=== PATIENT | female | born 1965 | race Caucasian/White ===

== ENCOUNTER 2018-04-19 12:13 | Emergency (ER) | payer MEDICAID ==
[~2018-04-19] VITALS: Ht 154.9 cm; Wt 63.0 kg
[2018-04-19] MEDS ORDERED: LISI-604 PO (12:38)
[2018-04-19] MEDS ORDERED: HYDROCODONE/ACETAMINOPHEN 5/325MG TABLET PO ONE (15:00)
[2018-04-19 15:15] VITALS: BP 140/91
== END 2018-04-19 16:23 | disposition home or self-care (01) ==
LOC: ER 12:13
DX: S82.201A Unspecified fracture of shaft of right tibia, initial encounter for closed fracture (principal); M79.604 Pain in right leg; E16.2 Hypoglycemia, unspecified; F17.200 Nicotine dependence, unspecified, uncomplicated; Z98.890 Other specified postprocedural states; Z88.5 Allergy status to narcotic agent; Z90.12 Acquired absence of left breast and nipple; Z79.899 Other long term (current) drug therapy; W01.0XXA Fall on same level from slipping, tripping and stumbling without subsequent striking against object, initial encounter; Y93.89 Activity, other specified; Y92.89 Other specified places as the place of occurrence of the external cause; Y99.8 Other external cause status
CPT/HCPCS: 29505; 99283